=== PATIENT | female | born 1940 | race Caucasian/White ===

== ENCOUNTER 2017-03-30 17:19 | Inpatient (IN) | payer MEDICAID ==
[~2017-03-30] VITALS: Ht 162.6 cm; Wt 85.2 kg
[2017-03-30] VITALS (7 sets, daily range): BP systolic 104–155; BP diastolic 58–75; PULSE 69–80; RESP 16–20; TEMP 99–101.7; O2SAT 93–96
[~2017-03-30 17:19] MED LIST: ALBU1AER INH; ASPI81TA82 PO; BENZ100 PO; CARV6.252 PO; FURO20 PO; LISI10 PO
[2017-03-30] MEDS ORDERED: SODIUM CHLOR 0.9% 1000 ML INJ 1,000 ML IV ONE ×3 (17:27→18:30)
--- NOTE | 2017-03-30 17:44 | RADRPT ---
EXAM DATE/TIME: 03/30/2017 17:29 [facility] COMPARISON: No previous studies available for comparison. INDICATIONS : Stroke alert; weakness. RADIATION DOSE: 61.70 CTDIvol (mGy) MEDICAL HISTORY : Non-responsive. SURGICAL HISTORY : Non-responsive. ENCOUNTER: Initial ACUITY: 1 day PAIN SCALE: 0/10 LOCATION: Cranial TECHNIQUE: Multiple contiguous axial images were obtained of the head. Using automated exposure control and adjustment of the mA and/or kV according to patient size, radiation dose was kept as low as reasonably achievable to obtain optimal diagnostic quality images. DICOM format image data is av ailable electronically for review and comparison. FINDINGS: There is mild prominence to the ventricles. There is no parenchymal hemorrhage, a cute infarction or mass lesion. There are no extra-axial fluid collections. Posterior fossa is unre markable. CONCLUSION: Mild prominence to the ventricles, negative for acute infarct or hemorrhage. Finding s were discussed with Dr. Dupont at 17:35 Murtaza Whyte MD FACR on March 30, 2017 at 17:37 Board Certified Radiologist. This report was verified electronically.
[2017-03-30 17:47] LABS: AUTOMATED NEUTROPHIL # 14.4 TH/MM3 (1.8-7.7); BASOPHIL # 0.6 TH/MM3 (0-0.2); BASOPHIL % 3.4 % (0.0-2.0); EOSINOPHIL # 0.1 TH/MM3 (0-0.4); EOSINOPHIL % 0.3 % (0.0-4.0); HEMATOCRIT 43.9 % (35.0-46.0); HEMO FLAGS DIFF FINAL; LYMPH % 11.7 % (9.0-44.0); LYMPHOCYTE # 2.1 TH/MM3 (1.0-4.8); MEAN CORPUSCULAR HEMOGLOBIN 28.5 PG (27.0-34.0); MEAN CORPUSCULAR HGB CONC 33.1 % (32.0-36.0); MONO % 6.2 % (0.0-8.0); NEUT % 78.4 % (16.0-70.0); PLATELET COUNT 303 TH/MM3 (150-450); RED CELL DISTRIBUTION WIDTH 13.7 % (11.6-17.2); WHITE BLOOD COUNT 18.3 TH/MM3 (4.0-11.0)
[2017-03-30 17:58] LABS: APTT (PATIENT) 27.7 SEC (24.3-30.1); PROTHROMBIN TIME - PATIENT 10.8 SEC (9.8-11.6)
[2017-03-30] MEDS ORDERED: SODIUM CHLORIDE 0.9% FLUSH 5 ML FLUSH IV FLUSH PRN (18:00)
[2017-03-30] MEDS ORDERED: DEXTROSE 50% IN WATER 50 ML VIAL(D50) IV PUSH PRN (18:00)
[2017-03-30] MEDS ORDERED: SODIUM CHLORID 0.9% 500 ML INJ 500 ML IV ONE (18:00)
[2017-03-30] MEDS ORDERED: ASPIRIN 325 MG TAB PO ONE (18:00)
[2017-03-30] MEDS ORDERED: ASPIRIN 300 MG SUPP RECTAL SCH (18:00)
[2017-03-30] MEDS ORDERED: GLUCAGON 1 MG/ML VIAL OTHER PRN (18:00)
--- NOTE | 2017-03-30 18:12 | PD ---
HPI Chief Complaint: Neuro Symptoms/ Deficits Time Seen by Provider: 17:27 Travel History International Travel<30 days: No Contact w/Intl Traveler<30days: No Traveled to known affect area: No History of Present Illness HPI 76-year-old female came to the emergency room with history of weakness, confusion that was sudden onset as per her granddaughter who drove her in her car, since 4 PM. Granddaughter says that she has been sleeping more than usual the whole day today. Usually she is very active and with it. At 3:30 PM when she was sitting on the couch her other granddaughter noticed that she was having trouble standing up. She was talking to her when she noticed that 4 PM she started getting all confused speech and garbled. The granddaughter was concerned for stroke and put her in the car and drove her to the emergency room. She was having trouble getting her in and out of the car. In the car patient could not remember what she did or 8 today. She said she thinks she mostly slept the whole day. Patient does not speak Central African and speaks Polish only. The granddaughter is helping with translation. Upon asking she told me her name but said she was 74 years old. After that she was unable to answer most of the questions. Granddaughter said that she has had a stroke in the past many years ago and 2 stents placed in the past. She is not on any blood thinners. [facility] Past Medical History Narrative Medical List of her past medical, surgical, social and family history is reviewed from the nursing note. Hx Anticoagulant Therapy: Yes Arthritis: Yes Asthma: Yes Blood Disorders: No Anxiety: No Depression: No Heart Rhythm Problems: No Cancer: No Cardiovascular Problems: Yes High Cholesterol: No Chemotherapy: No Chest Pain: Yes Congestive Heart Failure: No COPD: No Cerebrovascular Accident: No Coronary Artery Disease: Yes (stents placed 2011) Diabetes: No Diminished Hearing: No Endocrine: No Gastrointestinal Disorders: No GERD: Yes Glaucoma: No Genitourinary: No Headaches: No Hepatitis: No Hiatal Hernia: No Hypertension: Yes Immune Disorder: No Kidney Stones: No Musculoskeletal: Yes Neurologic: No Psychiatric: No Reproductive: No Respiratory: Yes Migraines: No Myocardial Infarction: No Radiation Therapy: No Renal Failure: No Seizures: No Sickle Cell Disease: No Sleep Apnea: No Thyroid Disease: Yes Ulcer: No Menopausal: Yes Past Surgical History Abdominal Surgery: No AICD: No Arteriovenous Shunt: No Body Medical Devices: stents x 2. Cardiac Surgery: No Section: Yes Ear Surgery: No Endocrine Surgery: No Eye Surgery: No Genitourinary Surgery: No Gynecologic Surgery: Yes (2 c-sections) Insulin Pump: No Joint Replacement: No Neurologic Surgery: No Oral Surgery: No Pacemaker: No Thoracic Surgery: No Tonsillectomy: Yes Other Surgery: Yes (varicose veins removed) Social History Alcohol Use: No Tobacco Use: No Substance Use: No Allergies-Medications (Allergen,Severity, Reaction): Coded Allergies: No Known Allergies (Verified , 04/04/16) Comments No known drug allergies. Reported Meds & Prescriptions Reported Meds & Active Scripts Active Reported Nitrostat SL (Nitroglycerin) 0.4 Mg Subl 0.4 Mg SL DIRECTED PRN 1 tablet under the tongue as needed for chest pain. Repeat every 5 minutes for a total of 3 DOSES or call 911 if NO relief. Atorvastatin (Atorvastatin Calcium) 20 Mg Tab 20 Mg PO HS Carvedilol 12.5 Mg Tab 12.5 Mg PO DAILY Ibuprofen 400 Mg Tab 400 Mg PO Q6H PRN Lisinopril 20 Mg Tab 20 Mg PO DAILY Tramadol (Tramadol HCl) 50 Mg Tab 50 Mg PO Q4H PRN Aspirin 81 Mg Chew 81 Mg CHEW DAILY Lasix (Furosemide) 20 Mg Tab 20 Mg PO DAILY Potassium Chloride ER (Potassium Chloride) 10 Meq Tab 10 Meq PO DAILY Gabapentin 100 Mg Cap 100 Mg PO TID Narrative Medication List of her home medications reviewed from the nursing note. Review of Systems Except as stated in HPI: all other systems reviewed are Neg Physical Exam Narrative GENERAL: Awake, obese, moderate distress, language barrier SKIN: Focused skin assessment warm/dry. HEAD: Atraumatic. Normocephalic. EYES: Pupils equal and round. No scleral icterus. No injection or drainage. ENT: No nasal bleeding or discharge. Mucous membranes pink and moist. NECK: Trachea midline. No JVD. CARDIOVASCULAR: Regular rate and rhythm. No murmur appreciated. RESPIRATORY: No accessory muscle use. Clear to auscultation. Breath sounds equal bilaterally. GASTROINTESTINAL: Abdomen soft, non-tender, nondistended. Hepatic and splenic margins not palpable. MUSCULOSKELETAL: No obvious deformities. No clubbing. No cyanosis. No edema. NEUROLOGICAL: Awake and confused. No obvious cranial nerve deficits. Patient is moving bilateral upper extremities. Difficulty moving either of the lower extremities. Upon helping she can keep her left lower extremity up for 3-4 seconds at the right lower extremity seems to have strand of 0 out of 5. Difficult to know if the speech is normal or dysarthria due to language. PSYCHIATRIC: Appropriate mood and affect; insight and judgment normal. Data Data Last Documented VS Orders Orders Cath For Specimen (03/30/17:) Neuro Checks Q2HX12,Q4H (03/30/17 17:27) Nursing Bedside Swallow Assess .ONCE (03/30/17 17:) Activity Bed Rest (03/30/17 17:) Diet Npo (03/30/17 Dinner) Prothrombin Time / Inr (Pt) (03/30/17:) Act Partial Throm Time (Ptt) (03/30/17:) Complete Blood Count With Diff (03/30/17:) Basic Metabolic Panel (Bmp) (03/30/17 17:) Fibrinogen (03/30/17 17:) Creatine Kinase (Cpk) (03/30/17 17:27) Troponin I (03/30/17 17:27) Drug Screen, Random Urine (03/30/17:) Type And Screen (03/30/17:) Ct Brain W/O Iv Contrast(Rout) (03/30/17 ) Electrocardiogram (03/30/17 ) Beta Hcg (Quant/Titer) (03/30/17 17:27) Consult Neurology (03/30/17 17:27) Sodium Chlor 0.9% 1000 Ml Inj (Ns 1000 M (03/30/17 17:27) Blood Glucose (03/30/17 17:27) Ecg Monitoring (03/30/17 17:27) Iv Access Insert/Monitor (03/30/17 17:27) NPO (03/30/17 17:) Oximetry (03/30/17 17:27) Oxygen Administration (03/30/17 17:27) Resp Oxygen Paco C Titrat 1-4 L (03/30/17 17:27) Sodium Chlorid 0.9% 500 Ml Inj (Ns 500 M (03/30/17 18:00) Aspirin (Aspirin) (03/30/17 18:00) Nih Stroke Scale - Nihss .On admission and discharge (03/30/17 18:00) Case Management Consult (03/30/17 ) Activity Bed Rest (03/30/17 18:00) Nursing Bedside Swallow Assess .ONCE (03/30/17 18:00) Scd Bilateral/Knee High JUDITH.QSHIFT (03/30/17 18:00) Hemoglobin (Hgb) A1c (03/30/17 18:00) Lipid Profile (03/31/17 06:00) ^ Hold Medication (03/30/17 18:00) Sodium Chloride 0.9% Flush (Ns Flush) (03/30/17 21:00) Sodium Chloride 0.9% Flush (Ns Flush) (03/30/17 18:00) Aspirin Supp (Aspirin Supp) (03/30/17 18:00) Bedside Glucose JUDITH.CSUGAR (03/30/17 18:00) ^ Discontinue Insulin Orders (03/30/17 18:00) Insulin Aspart Supplemtl Scale (Novolog (03/30/17 21:00) Dextrose 50% In Chaya (Vial) Inj (D50w (Vi (03/30/17 18:00) Glucagon Inj (Glucagon Inj) (03/30/17 18:00) Consult Rehab Medicine (03/30/17 18:00) Staff Sonographer / Telemetry JUDITH.Q8H (03/30/17 18:00) Consult Stroke Navigator (03/30/17 ) Enoxaparin Inj (Lovenox Inj) (03/30/17 18:00) Urinalysis - C+S If Indicated (03/30/17 18:13) Strain Urine PRN (03/30/17 18:13) Blood Culture (03/30/17 18:13) Lactic Acid (03/30/17 18:13) Sodium Chlor 0.9% 1000 Ml Inj (Ns 1000 M (03/30/17 18:30) Sodium Chlor 0.9% 1000 Ml Inj (Ns 1000 M (03/30/17 18:30) Piperacil-Tazo 4.5 Gm Premix (Zosyn 4.5 (03/30/17 18:30) Vancomycin Inj (Vancomycin Inj) (03/30/17 18:30) Acetaminophen (Tylenol) (03/30/17 18:30) Admit Order (Ed Use Only) (03/30/17 18:33) Us Carotid Arteries Comp Bilat (03/31/17 ) Mra Brain W/O Contrast (Cow) (03/31/17 ) Mri Brain W/O Contrast (03/31/17 ) Labs Laboratory Tests Test 03/30/17 17:35 03/30/17 18:00 White Blood Count 18.3 TH/MM3 Red Blood Count 5.10 MIL/MM3 Hemoglobin 14.6 GM/DL Hematocrit 43.9 % Mean Corpuscular Volume 86.0 FL Mean Corpuscular Hemoglobin 28.5 PG Mean Corpuscular Hemoglobin Concent 33.1 % Red Cell Distribution Width 13.7 % Platelet Count 303 TH/MM3 Mean Platelet Volume 7.9 FL Neutrophils (%) (Auto) 78.4 % Lymphocytes (%) (Auto) 11.7 % Monocytes (%) (Auto) 6.2 % Eosinophils (%) (Auto) 0.3 % Basophils (%) (Auto) 3.4 % Neutrophils # (Auto) 14.4 TH/MM3 Lymphocytes # (Auto) 2.1 TH/MM3 Monocytes # (Auto) 1.1 TH/MM3 Eosinophils # (Auto) 0.1 TH/MM3 Basophils # (Auto) 0.6 TH/MM3 CBC Comment DIFF FINAL Differential Comment Prothrombin Time 10.8 SEC Prothromb Time International Ratio 1.0 RATIO Activated Partial Thromboplast Time 27.7 SEC Fibrinogen 438 mg/dL Hemoglobin A1c 5.7 % Urine Collection Type CATH Urine Color YELLOW Urine Turbidity CLEAR Urine pH 6.0 Urine Specific [place] 1.021 Urine Protein 30 mg/dL Urine Glucose (UA) NEG mg/dL Urine Ketones NEG mg/dL Urine Occult Blood LARGE Urine Nitrite POS Urine Bilirubin NEG Urine Leukocyte Esterase NEG Urine RBC 10-14 /hpf Urine WBC 15-19 /hpf Urine WBC Clumps FEW Urine Bacteria MANY /hpf Microscopic Urinalysis Comment CATH-CULTURE IND Urine Collection Time 18:00 Urine Opiates Screen NEG Urine Barbiturates Screen NEG Urine Amphetamines Screen NEG Urine Benzodiazepines Screen NEG Urine Cocaine Screen NEG Urine Cannabinoids Screen NEG MDM Medical Decision Making Medical Screen Exam Complete: Yes Emergency Medical Condition: Yes Medical Record Reviewed: Yes Interpretation(s) Twelve-lead EKG was reviewed by me. Normal sinus rhythm, normal axis, nonspecific ST-T wave changes. Heart rate of 82 bpm. Differential Diagnosis CVA, intracranial bleed Narrative Course 6:22 PM initially given her presentation a stroke alert was called. Discussed the case with Dr. Gilliam and described to her the picture. She told me she was in the building and would come down immediately which she did. Meanwhile CAT scan was done and I got called from radiologist saying that it was negative for any hemorrhage. Bedside blood sugar was 131. I was unable to do an NIH stroke score given the language barrier and seems like patient was having difficulty following commands to some extent. However once Dr. Gilliam arrived and she examined the patient she said her symptoms were looking much better. She decided not to give TPA to this patient given a significant improvement. Please refer to her dictation as well. Blood test results came back and patient has significant leukocytosis. I just noticed that nurse had entered patient's temperature as 100.6 at which point I asked her to do a rectal temperature and I was told it was 101.7. Based on this at this point patient is rather sepsis. I've asked the nurse to do a straight catheter UA. I have ordered 2 L of IV fluid bolus. She was ordered 500 cc bolus initially. I have also given her IV Zosyn and vancomycin as per sepsis protocol. Awaiting for the chemistry. Patient will require admission. Critical Care Narrative Aggregate critical care time was 30 minutes. Time to perform other separately billable procedures was not included in the critical care time. My time did not include minutes spent treating any other patients simultaneously or on activities that did not directly contribute to the patient's treatment. The services I provided to this patient were to treat and/or prevent clinically significant deterioration that could result in: Altered mental status, sepsis I provided critical care services requiring my management, as noted below: Chart data review, documentation time, medication orders and management, vital sign assessments/reviewing monitor data, ordering and reviewing lab tests, ordering and interpreting/reviewing x-rays and diagnostic studies, care of the patient and discussion of the patient with the admitting physicians. Procedures EKG Prior to Arrival: No Physician Communication Physician Communication dr. Gilliam Diagnosis Primary Impression: Altered mental status Qualified Codes: R41.0 - Disorientation, unspecified Additional Impression: Sepsis Qualified Codes: A41.9 - Sepsis, unspecified organism Admitting Information Admitting Physician Requests: Admit Scripts Hydrocodone-Acetaminophen ([place]) 5-325 mg Tab 1 TAB PO Q8HR Y for PAIN, #15 TAB 0 Refills Prov: Ya Aguayo MD 04/01/17 Lactobacillus Acidophilus (Lactinex) 1 Chew 1 TAB CHEW DAILY for Nutritional Supplement, #30 TAB 0 Refills Prov: Ya Aguayo MD 04/01/17 Ciprofloxacin (Cipro) 500 Mg Tab 500 MG PO BID for Infection, #14 TAB 0 Refills Prov: Ya Aguayo MD 04/01/17 Addy Dupont MD Mar 30, 2017 18:12
[2017-03-30] MEDS ORDERED: LISI-515 PO (18:26)
[2017-03-30] MEDS ORDERED: IBUP400T20 PO (18:26)
[2017-03-30] MEDS ORDERED: ATOR20TA15 PO (18:26)
[2017-03-30] MEDS ORDERED: NITR0.4S SL (18:26)
[2017-03-30] MEDS ORDERED: TRAM50TA PO (18:26)
[2017-03-30] MEDS ORDERED: GABA100C4 PO (18:26)
[2017-03-30] MEDS ORDERED: FURO1TAB62 PO (18:26)
[2017-03-30] MEDS ORDERED: POTA10TA2 PO (18:26)
[2017-03-30] MEDS ORDERED: CARV12.52 PO (18:26)
[2017-03-30] MEDS ORDERED: ASPI81CH CHEW (18:26)
[2017-03-30] MEDS ORDERED: VANCOMYCIN INJ 1,000 MG in SODIUM CHLOR 0.9% 250 ML INJ 250 ML IV ONE (18:30)
[2017-03-30] MEDS ORDERED: ACETAMINOPHEN 325 MG TAB PO ONE (18:30)
[2017-03-30] MEDS ORDERED: PIPERACIL-TAZO 4.5 GM PREMIX 100 ML IV ONE (18:30)
[2017-03-30] MEDS ORDERED: Vancomycin Consult Pharmacy 1 EA OTHER SCH (18:45)
[2017-03-30] MEDS ORDERED: IBUPROFEN 400 MG TAB PO PRN (18:45)
[2017-03-30] MEDS ORDERED: VANCOMYCIN INJ 1,000 MG in SODIUM CHLOR 0.9% 250 ML INJ 250 ML IV SCH (18:45)
[2017-03-30] MEDS ORDERED: BISACODYL 10 MG SUPP RECTAL PRN (18:45)
[2017-03-30] MEDS ORDERED: NALOXONE HCL 0.4 MG/ML AMP IV PUSH PRN (18:45)
[2017-03-30] MEDS ORDERED: SODIUM CHLORIDE 0.9% FLUSH 10 ML FLUSH IV FLUSH PRN (18:45)
[2017-03-30 18:54] LABS: BLOOD, URINE LARGE (NEG); GLUCOSE,URINE NEG (NEG); KETONE, URINE NEG (NEG); NITRITE,URINE POS (NEG)
[2017-03-30 18:56] LABS: METHOD OF COLLECTION CATH; URINE COLOR YELLOW (YELLW/STRAW)
[2017-03-30 18:59] LABS: WBC, URINE 15-19 /hpf (0-5)
[2017-03-30] MEDS ORDERED: SENNOSIDES 8.6 MG TAB PO PRN (19:00)
[2017-03-30] MEDS ORDERED: LACTULOSE SYRUP 20 GM/30 ML CUP PO PRN (19:00)
[2017-03-30] MEDS ORDERED: MAGNESIUM HYDROXIDE SUSP 30 ML CUP PO PRN (19:00)
[2017-03-30 19:01] LABS: BACTERIA, URINE MANY /hpf; COMMENT (UR) CATH-CULTURE IND; CULTURE IF INDICATED CATH CULTURE IND
[2017-03-30] MEDS: ENOXAPARIN SODIUM 40 MG/0.4 ML SYRINGE SQ SCH (19:31)
[2017-03-30 19:53] LABS: BLOOD UREA NITROGEN 18 MG/DL (7-18)
[2017-03-30 19:54] LABS: ANION GAP 7 MEQ/L (5-15); BETA HCG QUANT 2 MIU/ML (0-5); BICARBONATE 28.8 MEQ/L (21.0-32.0); CHLORIDE 103 MEQ/L (98-107); CREATINE KINASE 31 U/L (26-192); GLOMERULAR FILTRATION RATE 69 ML/MIN (>89); POTASSIUM 3.2 MEQ/L (3.5-5.1); SODIUM (NA) 139 MEQ/L (136-145)
[2017-03-30] MEDS: PIPERACIL-TAZO 4.5 GM PREMIX 100 ML IV SCH (20:00)
[2017-03-30] MEDS ORDERED: traMADol HCL 50 MG TAB PO PRN (20:00)
[2017-03-30 20:35] LABS: HEMOGLOBIN A1a 1.1 %; HEMOGLOBIN Ao 84.4 %; HEMOGLOBIN LA1C 2.2 %; HEMOGLOBIN P3 4.2 %
[2017-03-30] MEDS: SODIUM CHLORIDE 0.9% FLUSH 10 ML FLUSH IV FLUSH SCH (21:00)
[2017-03-30] MEDS ORDERED: VANCOMYCIN INJ 1,250 MG in SODIUM CHLOR 0.9% 250 ML INJ 250 ML IV SCH (21:00)
[2017-03-30] MEDS ORDERED: SODIUM CHLORIDE 0.9% FLUSH 5 ML FLUSH IV FLUSH SCH (21:00)
[2017-03-30] MEDS: DOCUSATE SODIUM 50 MG/SENNA 8.6 MG TAB PO SCH (21:00)
[2017-03-30] MEDS: INSULIN ASPART SUPPLEMENTAL SCALE SQ SCH (21:11)
--- NOTE | 2017-03-30 21:26 | MB ---
cc: DIEGO RUSSELL M.D. DATE OF CONSULTATION: 03/30/2017 REASON FOR CONSULTATION: Stroke alert DATE OF : 1940, 76 HISTORY OF PRESENT ILLNESS: This is a pleasant 76 year-old woman who started experiencing some facial droop and slurred speech 3:30 to 4 o'clock in the afternoon. She was unable to walk. The daughter actually was able to get her into a wheelchair from home and drive her to the hospital. Here in the hospital there is a language barrier. She does not speak any Persian only [place] with the daughter. She was still having some possible weakness over her left leg and confusion which is significantly improved. She has undergone CT of the head per protocol and labs. I am seeing the patient at CT and talking to the family member to the granddaughter. PAST MEDICAL HISTORY: Significant for: 1. Heart disease. 2. Two stents. 3. DVT. 4. Hypertension. MEDICATIONS: She is only on baby aspirin for stroke prevention. Other medicines please refer to EMR. SOCIAL HISTORY: She lives with her family here in [place]. There is no tobacco or alcohol consumption. She used to work in the [employer] business. She has a lot of arthritic changes in her feet. PHYSICAL EXAMINATION: She is a 76-year-old woman lying in bed in no distress. NECK: Supple. No bruits. HEART: Regular. She is awake and alert. She knows she lives in [place]. She told me her granddaughter's name, the relationship to her. She knows her name, her date of , however, she said she was 74 instead of 76. She initially thought it was February but then after Thi assessed her she stated it was April, but she knew that it was 2016. She does not know the date or the day of the week and that is not unusual for her, per her family members description. NEUROLOGIC: Speech otherwise is fluent in her [place] tongue which is [place]. Pupils reactive. Her face is symmetrical. Tongue is midline. She follows commands. Motor cruz, she has no drift. She has an old fracture of the right elbow. There is a large scar. She has some tenderness there but there is no significant weakness noted proximally nor distally. She can lift her leg antigravity in her left with maintaining resistance. It is 4/5. Her left toe is downgoing. Right leg, she is lifting to the right a little bit in the bed but she can lift antigravity and maintain resistance and right toe is downgoing as well. Cerebellar: [id number], no past-pointing. Sensory is normal to pain and temperature, gait is not assessed at this time. LABORATORY DATA White count is 18.3 neutrophils 78.4, hemoglobin 14.6, platelets 303,000. Coag panel is pending. Chemistries are pending as well. Imaging study report cannot be obtained but from my review I do not see any acute infarct. There may be some calcification in the MCA bilaterally but no significant dense MCA sign seen, just some ventriculomegaly, atrophy. IMPRESSION The patient is a 76-year-old woman with stroke alert. At this point in time she did not meet criteria for TPA because of rapidly improving symptoms. She seems near baseline at this time. Recommend, however, a full stroke workup, given her heart history. Will get an MRI of the brain, MRA [place], carotid ultrasound, 2-D echocardiogram, also a fasting lipid panel. Permissible hypertension. Will start her on full dose aspirin. SCDs and Lovenox for DVT prophylaxis. PT/OT, speech therapy evaluation. Depending on findings further recommendations to be made accordingly. MD ROMARIO Motta/MARCUS /5:54 PM /8:36 PM
[2017-03-30] MEDS: ATORVASTATIN 20 MG TAB PO SCH (22:26)
[2017-03-31] VITALS (8 sets, daily range): BP systolic 107–123; BP diastolic 67–70; PULSE 63–70; RESP 16–20; TEMP 97.5–98.6; O2SAT 93–95
[2017-03-31] MEDS ORDERED: VANCOMYCIN INJ 750 MG in SODIUM CHLOR 0.9% 250 ML INJ 250 ML IV ONE ×2
[2017-03-31] MEDS: PIPERACIL-TAZO 4.5 GM PREMIX 100 ML IV SCH ×4 (02:11→21:30)
[2017-03-31 06:39] LABS: AUTOMATED NEUTROPHIL # 9.2 TH/MM3 (1.8-7.7); BASOPHIL % 0.4 % (0.0-2.0); EOSINOPHIL # 0.1 TH/MM3 (0-0.4); EOSINOPHIL % 0.8 % (0.0-4.0); HEMATOCRIT 36.6 % (35.0-46.0); LYMPH % 16.2 % (9.0-44.0); LYMPHOCYTE # 1.9 TH/MM3 (1.0-4.8); MEAN CELL VOLUME 85.6 FL (80.0-100.0); MEAN CORPUSCULAR HEMOGLOBIN 28.4 PG (27.0-34.0); MEAN CORPUSCULAR HGB CONC 33.2 % (32.0-36.0); NEUT % 75.6 % (16.0-70.0); PLATELET COUNT 238 TH/MM3 (150-450); RED BLOOD COUNT 4.27 MIL/MM3 (4.00-5.30); RED CELL DISTRIBUTION WIDTH 13.4 % (11.6-17.2)
[2017-03-31 06:59] LABS: BICARBONATE 27.8 MEQ/L (21.0-32.0)
[2017-03-31 07:02] LABS: POTASSIUM 2.9 MEQ/L (3.5-5.1)
[2017-03-31 07:05] LABS: HEMO FLAGS DIFF FINAL
--- NOTE | 2017-03-31 07:50 | EKG ---
Date Performed: 03/30/2017 Time Performed: 17:40:35 PTAGE: 76 years EKG: Sinus rhythm NORMAL ECG Since PREVIOUS TRACING , no significant change noted PREVIOUS TRACIN04/12/2016 11.30 DOCTOR: Ana Bryant Interpretating Date/Time 03/31/2017 07:48:35
[2017-03-31] MEDS ORDERED: POTASSIUM CHLORIDE 10 MEQ CONTROLLED RELEASE TAB PO ONE (08:00)
[2017-03-31] MEDS: INSULIN ASPART SUPPLEMENTAL SCALE SQ SCH ×4 (08:05→21:00)
[2017-03-31] MEDS: SODIUM CHLORIDE 0.9% FLUSH 10 ML FLUSH IV FLUSH SCH ×2 (09:00→21:30)
--- NOTE | 2017-03-31 09:14 | RADRPT ---
EXAM DATE/TIME: 03/31/2017 08:17 [facility] COMPARISON: CHEST SINGLE AP, April 11, 2016, 14:10. INDICATIONS : Dyspnea. MEDICAL HISTORY : Arthritis. Gastroesophageal reflux disease. Osteoporosis. Hypertension. Supraventricular tachycar pam.Thyroid disease. Asthma. Wheezing. Dyspnea. SURGICAL HISTORY : section. Total knee replacement, left. Cardiac cath w/ stent placement. Right arm surgery. Vericose vein removal. ENCOUNTER: Subsequent ACUITY: 2 days PAIN SCORE: 0/10 LOCATION: chest FINDINGS: Single AP view of the chest. The lungs are clear. Cardiomediastinal silhouette within normal limits. No evidence of pleural effusion or pneumothorax. CONCLUSION: No acute cardiopulmonary disease identified. Jovanni Sprague MD on March 31, 2017 at 9:11 Board Certified Radiologist. This report was verified electronically.
[2017-03-31] MEDS ORDERED: Vancomycin Consult Pharmacy 1 EA OTHER SCH (09:15)
[2017-03-31] MEDS: GABAPENTIN 100 MG CAP PO SCH ×3 (09:46→17:14)
[2017-03-31] MEDS: ASPIRIN 81 MG CHEW TAB CHEW SCH (09:46)
[2017-03-31] MEDS: CARVEDILOL 12.5 MG TAB PO SCH (09:46)
[2017-03-31] MEDS: DOCUSATE SODIUM 50 MG/SENNA 8.6 MG TAB PO SCH ×2 (09:46→21:00)
[2017-03-31] MEDS: LISINOPRIL 20 MG TAB PO SCH (09:46)
[2017-03-31 09:57] LABS: HDL CHOLESTEROL 41.4 MG/DL (40.0-60.0)
--- NOTE | 2017-03-31 10:58 | RADRPT ---
EXAM DATE/TIME: 03/31/2017 08:46 [facility] COMPARISON: No previous studies available for comparison. INDICATIONS : Cerebrovascular accident. MEDICAL HISTORY : Hypertension. Gastroesophageal reflux disease. Thyroid disease. Coronary artery disease. Asthma. Arthritis. SURGICAL HISTORY : Tonsillectomy. section. Cardiac stent placement. Right arm repair. Left knee replacement . Vericose vein removal. ENCOUNTER: Initial ACUITY: 2 days PAIN SCORE: 2/10 LOCATION: Bilateral neck PEAK SYSTOLIC VELOCITIES (cm/sec): ICA/CCA RATIO: Right: 1.0 Left: 0.9 ICA: Right: 81 Left: 87 CCA: Right: 81 Left: 94 ECA: Right: 106 Left: 78 VERTEBRAL: Right: 45 antegrade Left: 27 antegrade Elevated flow velocities and ICA/CCA ratios have been found to correlate with increased degrees of vessel stenosis, calculated as percentage of diameter relative to a normal segment of distal ICA/CCA FINDINGS: RIGHT CAROTID: No significant stenosis is visualized. The waveforms are within normal limits. LEFT CAROTID: No significant stenosis is visualized. The waveforms are within normal limits. VERTEBRAL ARTERIES: Antegrade flow is seen in both vertebral arteries. MISCELLANEOUS: None. CONCLUSION: No evidence of hemodynamically significant carotid stenosis. Jovanni Sprague MD on March 31, 2017 at 10:56 Board Certified Radiologist. This report was verified electronically.
--- NOTE | 2017-03-31 13:52 | RADRPT ---
EXAM DATE/TIME: 03/31/2017 10:59 [facility] COMPARISON: No previous studies available for comparison. INDICATIONS : CVA. MEDICAL HISTORY : Hypertension. SURGICAL HISTORY : Tonsillectomy. Rigth arm and left knee. ENCOUNTER: Initial ACUITY: 1 day PAIN SCORE: 0/10 LOCATION: Head. Please note a normal MRA of the brain does not entirely exclude the possibility of a small aneurysm, nor the possibility of distal intracranial vessel disease. TECHNIQUE: 3D time of flight MRA was performed. Source images, multiplanar STS MIP, and 3D volume MIP reconstru ctions were reviewed. FINDINGS: There is excellent visualization of the major intracranial arteries out to the second-order branch ve ssels. There is no evidence for aneurysm, vessel truncation or stenosis, and no evidence for vascula r malformation. CONCLUSION: Brain MRA within normal limits. Jovanni Sprague MD on March 31, 2017 at 13:49 Board Certified Radiologist. This report was verified electronically.
--- NOTE | 2017-03-31 13:55 | RADRPT ---
EXAM DATE/TIME: 03/31/2017 10:59 [facility] COMPARISON: No previous studies available for comparison. INDICATIONS : CVA. MEDICAL HISTORY : Hypertension. SURGICAL HISTORY : Tonsillectomy. Right arm and left knee. ENCOUNTER: Initial ACUITY: 1 day PAIN SCORE: 0/10 LOCATION: Head. TECHNIQUE: Multiplanar, multisequence MRI of the brain was performed without contrast. FINDINGS: CEREBRUM: Diffuse prominence of the ventricles, sulci, and cisterns indicating diffuse atrophy. No evidence of midline shift, mass lesion, hemorrhage or acute infarction. No extraaxial fluid collections are seen . The pituitary gland and suprasellar cistern are normal in configuration. WHITE MATTER: No significant signal abnormalities are seen in the white matter. POSTERIOR FOSSA: The cerebellum and brainstem are intact. The 4th ventricle is midline. The cerebellopontine angle is unremarkable. The cerebellar tonsils are normal in position. DIFFUSION IMAGING: No focal areas of restricted diffusion are seen. No evidence of acute infarction. EXTRACRANIAL: The visualized portions of the orbits and paranasal sinuses are unremarkable. CONCLUSION: Diffuse atrophy. Ventricles are slightly more prominent than the sulci indicating possible hydrocepha eliane. No other acute intracranial findings. Jovanni Sprague MD on March 31, 2017 at 13:51 Board Certified Radiologist. This report was verified electronically.
--- NOTE | 2017-03-31 14:48 | HHI.HP ---
[facility] Unknown Admission Diagnosis sepsis, altered mental status Diagnoses: Chief Complaint: altered mental status Travel History International Travel<30 Days: No Contact w/Intl Traveler <30 Da: No Traveled to Known Affected Are: No History of Present Illness The patient is a very pleasant 76-year-old female tamazight speaking only with past medical history of coronary artery disease status post stents 2011, hypertension , hyperlipidemia, GERD, presented to the emergency room for further evaluation of altered mental status. Daughter was drinking the patient yesterday in the emergency room he goes she was noted altered mental status confused and not responding to her questions, slurred speech. The daughter however medications to her in the wheelchair and bring her to the emergency room. Patient says she has back pain for the past 2 months and she was mostly bedridden. She had physical therapy and improved some. She says she has more pain in her back and she has radiation to her left knee and left buttocks. Has paresthesias as well on the left side. Initially stroke alert was called in the emergency room. CT head negative. Neurology was consulted as well the patient was seen by Dr. Gilliam, Patient had full workup for CVA. The patient is noted with fever, leukocytosis in the emergency room, patient with UTI. She was started on IV antibiotics, IVF. Patient is improving. Patient denies any nausea, vomiting. She says she has diarrhea for the past 1 week. Last bowel movements was 2 days ago. No fever or chills at this time. She denies any urinary complaints except urinary incontinence and increased frequency. No pain with urination. Review of Systems ROS Limitations: Clinical Condition, Language Barrier Except as stated in HPI: all other systems reviewed are Neg Past Family Social History Past Medical History CVA with 2 stents, hyperlipidemia, hypertension, GERD Past Surgical History Right arm surgery, 2 , varicose veins removed Reported Medications Reported Meds & Active Scripts Active Reported Nitrostat SL (Nitroglycerin) 0.4 Mg Subl 0.4 Mg SL DIRECTED PRN 1 tablet under the tongue as needed for chest pain. Repeat every 5 minutes for a total of 3 DOSES or call 911 if NO relief. Atorvastatin (Atorvastatin Calcium) 20 Mg Tab 20 Mg PO HS Carvedilol 12.5 Mg Tab 12.5 Mg PO DAILY Ibuprofen 400 Mg Tab 400 Mg PO Q6H PRN Lisinopril 20 Mg Tab 20 Mg PO DAILY Tramadol (Tramadol HCl) 50 Mg Tab 50 Mg PO Q4H PRN Aspirin 81 Mg Chew 81 Mg CHEW DAILY Lasix (Furosemide) 20 Mg Tab 20 Mg PO DAILY Potassium Chloride ER (Potassium Chloride) 10 Meq Tab 10 Meq PO DAILY Gabapentin 100 Mg Cap 100 Mg PO TID Allergies: Coded Allergies: No Known Allergies (Verified , 04/04/16) Family History Father with cardiac problems Social History Denies alcohol use, illicit drug use or tobacco use Physical Exam Vital Signs Vital Signs Date Time Temp Pulse Resp B/P (MAP) Pulse Ox O2 Delivery O2 Flow Rate FiO2 03/31/17 12:00 98.6 64 18 107/67 (80) 93 03/31/17 08:12 65 03/31/17 08:00 98.3 63 18 119/70 (86) 94 03/31/17 07:57 94 21 03/31/17 05:12 21 03/31/17 01:22 98.5 66 16 123/68 (86) 95 03/31/17 00:30 03/30/17 23:59 99.0 69 16 115/58 (77) 94 Room Air 03/30/17 22:16 99.4 69 16 112/61 (78) 96 Room Air 03/30/17 20:10 99.6 75 16 104/58 (73) 96 Room Air 03/30/17 18:32 6 Nasal Cannula 2.00 03/30/17 18:31 96 03/30/17 18:19 101.7 03/30/17 17:28 93 21 03/30/17 17:28 93 03/30/17 17:20 100.6 80 20 155/75 (101) 96 Physical Exam GENERAL: This is a well-nourished, well-developed patient, in no apparent distress. SKIN: No rashes, ecchymoses or lesions. Cool and dry. HEAD: Atraumatic. Normocephalic. No temporal or scalp tenderness. EYES: Pupils equal round and reactive. Extraocular motions intact. No scleral icterus. No injection or drainage. ENT: Nose without bleeding, purulent drainage or septal hematoma. Throat without erythema, tonsillar hypertrophy or exudate. Uvula midline. Airway patent. NECK: Trachea midline. No JVD or lymphadenopathy. Supple, nontender, no meningeal signs. CARDIOVASCULAR: Regular rate and rhythm without murmurs, gallops, or rubs. RESPIRATORY: Clear to auscultation. Breath sounds equal bilaterally. No wheezes , rales, or rhonchi. GASTROINTESTINAL: Abdomen soft, non-tender, nondistended. No hepato-splenomegaly , or palpable masses. No guarding. MUSCULOSKELETAL: Extremities without clubbing, cyanosis, or edema. No joint tenderness, effusion, or edema noted. No calf tenderness. Negative Homans sign bilaterally. NEUROLOGICAL: Awake and alert. Cranial nerves II through XII intact. Motor grossly within normal limits. Has some weakness on the left leg with paresthesias. Normal speech, back at baseline. Laboratory Laboratory Tests Test 03/30/17 17:35 03/30/17 18:00 03/30/17 18:59 03/30/17 19:16 White Blood Count 18.3 Red Blood Count 5.10 Hemoglobin 14.6 Hematocrit 43.9 Mean Corpuscular Volume 86.0 Mean Corpuscular Hemoglobin 28.5 Mean Corpuscular Hemoglobin Concent 33.1 Red Cell Distribution Width 13.7 Platelet Count 303 Mean Platelet Volume 7.9 Neutrophils (%) (Auto) 78.4 Lymphocytes (%) (Auto) 11.7 Monocytes (%) (Auto) 6.2 Eosinophils (%) (Auto) 0.3 Basophils (%) (Auto) 3.4 Neutrophils # (Auto) 14.4 Lymphocytes # (Auto) 2.1 Monocytes # (Auto) 1.1 Eosinophils # (Auto) 0.1 Basophils # (Auto) 0.6 CBC Comment DIFF FINAL Differential Comment Prothrombin Time 10.8 Prothromb Time International Ratio 1.0 Activated Partial Thromboplast Time 27.7 Fibrinogen 438 Hemoglobin A1c 5.7 Urine Collection Type CATH Urine Color YELLOW Urine Turbidity CLEAR Urine pH 6.0 Urine Specific [place] 1.021 Urine Protein 30 Urine Glucose (UA) NEG Urine Ketones NEG Urine Occult Blood LARGE Urine Nitrite POS Urine Bilirubin NEG Urine Leukocyte Esterase NEG Urine RBC 10-14 Urine WBC 15-19 Urine WBC [place] FEW Urine Bacteria MANY Microscopic Urinalysis Comment CATH-CULTURE IND Urine Collection Time 18:00 Urine Opiates Screen NEG Urine Barbiturates Screen NEG Urine Amphetamines Screen NEG Urine Benzodiazepines Screen NEG Urine Cocaine Screen NEG Urine Cannabinoids Screen NEG Lactic Acid Level 1.0 Blood Urea Nitrogen 18 Creatinine 0.81 Random Glucose 113 Calcium Level 8.9 Sodium Level 139 Potassium Level 3.2 Chloride Level 103 Carbon Dioxide Level 28.8 Anion Gap 7 Estimat Glomerular Filtration Rate 69 Total Creatine Kinase 31 Troponin I LESS THAN 0.02 Human Chorionic Gonadotropin, Quant 2 Test 03/31/17 05:22 White Blood Count 12.0 Red Blood Count 4.27 Hemoglobin 12.1 Hematocrit 36.6 Mean Corpuscular Volume 85.6 Mean Corpuscular Hemoglobin 28.4 Mean Corpuscular Hemoglobin Concent 33.2 Red Cell Distribution Width 13.4 Platelet Count 238 Mean Platelet Volume 7.8 Neutrophils (%) (Auto) 75.6 Lymphocytes (%) (Auto) 16.2 Monocytes (%) (Auto) 7.0 Eosinophils (%) (Auto) 0.8 Basophils (%) (Auto) 0.4 Neutrophils # (Auto) 9.2 Lymphocytes # (Auto) 1.9 Monocytes # (Auto) 0.8 Eosinophils # (Auto) 0.1 Basophils # (Auto) 0.0 CBC Comment DIFF FINAL Differential Comment Blood Urea Nitrogen 15 Creatinine 0.80 Random Glucose 95 Calcium Level 8.5 Sodium Level 142 Potassium Level 2.9 Chloride Level 106 Carbon Dioxide Level 27.8 Anion Gap 8 Estimat Glomerular Filtration Rate 70 Triglycerides Level 135 Cholesterol Level 111 LDL Cholesterol 43 HDL Cholesterol 41.4 Cholesterol/HDL Ratio 2.68 Date/Time Source Procedure Growth Status 03/30/17 19:05 Blood Peripheral Aerobic Blood Culture - Preliminary NO GROWTH IN 1 DAY Resulted 03/30/17 19:05 Blood Peripheral Anaerobic Blood Culture - Preliminary NO GROWTH IN 1 DAY Resulted 03/30/17 18:00 Urine Catheterized Urine Urine Culture - Preliminary Gram Negative Abhi Resulted Result Diagram: 03/31/17 0522 03/31/1722 Imaging Last Impressions Head Magnetic Resonance Angiography 03/31/17 0000 Signed Impressions: Service Date/Time: March 10:59 - CONCLUSION: Brain MRA within normal limits. Jovanni Sprague MD Chest X-Ray 03/31/17 0000 Signed Impressions: Service Date/Time: March 08:17 - CONCLUSION: No acute cardiopulmonary disease identified. Jovanni Sprague MD Carotid Artery Ultrasound 03/31/17 0000 Signed Impressions: Service Date/Time: March 08:46 - CONCLUSION: No evidence of hemodynamically significant carotid stenosis. Jovanni Sprague MD Brain MRI 03/31/17 0000 Signed Impressions: Service Date/Time: March 10:59 - CONCLUSION: Diffuse atrophy. Ventricles are slightly more prominent than the sulci indicating possible hydrocephalus. No other acute intracranial findings. Jovanni Sprague MD Caprini VTE Risk Assessment Caprini VTE Risk Assessment: Mod/High Risk (score >= 2) Caprini Risk Assessment Model Point Value = 1 Point Value = 2 Point Value = 3 Point Value = 5 Age 41-60 Minor surgery BMI > 25 kg/m2 Swollen legs Varicose veins or History of unexplained or recurrent spontaneous Oral contraceptives or hormone replacement Sepsis (< 1 month) Serious lung disease, including pneumonia (< 1 month) Abnormal pulmonary function Acute myocardial infarction Congestive heart failure (< 1 month) History of inflammatory bowel disease Medical patient at bed rest Age 61-74 Arthroscopic surgery Major open surgery (> 45 min) Laparoscopic surgery (> 45 min) Malignancy Confined to bed (> 72 hours) Immobilizing plaster cast Central venous access Age >= 75 History of VTE Family history of VTE Factor V Leiden Prothrombin [id number] Lupus anticoagulant Anticardiolipin antibodies Elevated serum homocysteine Heparin-induced thrombocytopenia Other congenital or acquired thrombophilia Stroke (< 1 month) Elective arthroplasty Hip, pelvis, or leg fracture Acute spinal cord injury (< 1 month) Prophylaxis Regimen Total Risk Factor Score Risk Level Prophylaxis Regimen 0-1 Low Early ambulation 2 Moderate Order ONE of the following: *Sequential Compression Device (SCD) *Heparin 5000 units SQ BID 3-4 Higher Order ONE of the following medications: *Heparin 5000 units SQ TID *Enoxaparin/Lovenox 40 mg SQ daily (WT < 150 kg, CrCl > 30 mL/min) *Enoxaparin/Lovenox 30 mg SQ daily (WT < 150 kg, CrCl > 10-29 mL/min) *Enoxaparin/Lovenox 30 mg SQ BID (WT < 150 kg, CrCl > 30 mL/min) AND/OR *Sequential Compression Device (SCD) 5 or more Highest Order ONE of the following medications: *Heparin 5000 units SQ TID (Preferred with Epidurals) *Enoxaparin/Lovenox 40 mg SQ daily (WT < 150 kg, CrCl > 30 mL/min) *Enoxaparin/Lovenox 30 mg SQ daily (WT < 150 kg, CrCl > 10-29 mL/min) *Enoxaparin/Lovenox 30 mg SQ BID (WT < 150 kg, CrCl > 30 mL/min) AND *Sequential Compression Device (SCD) Assessment and Plan Assessment and Plan 76-year-old female with Acute encephalopathy 2/2 sepsis due to UTI Expressive ataxia r/o CVA Severe Sepsis ( fever, tachycardia, leukocytosis, encephalopathy on admission) Stroke alert was called. CT head reviewed and negative. Seen by Dr Gilliam neurology . Recommends full work Up . Had MRI/MRA/carotid US reviewed. MRI with atrophy of the brain and enlarged ventricles, otherwise normal imaging, discussed with patient and family. Stroke protocol. ST/OT/PT On tele Neurochecks IVF Started vanco and zosyn. CXR reviewed and normal Patient with UTI - GNR, DC vanco and continue zosyn. Monitor ucx. Blood cultures obtained in the ED and NTD Back pain with radiculopathy will do MRI Spine Diarrhea Check fpr Cc diff start probiotic Chronic medical problems appears at baseline: continue DVT oox scd.margot/lovenox Code Status full code Discussed Condition With patient. nurse, family (daughter at bedside and her son by phone), ED physician Physician Certification 2 Midnight Certification Type: Admission for Inpatient Services Order for Inpatient Services The services are ordered in accordance with Medicare regulations or non- Medicare payer requirements, as applicable. In the case of services not specified as inpatient-only, they are appropriately provided as inpatient services in accordance with the 2-midnight benchmark. Estimated LOS (days): 3 days is the estimated time the patient will need to remain in the hospital, assuming treatment plan goals are met and no additional complications. Post-Hospital Plan: Home Ya Aguayo MD Mar 31, 2017 14:48
[2017-03-31] MEDS: ENOXAPARIN SODIUM 40 MG/0.4 ML SYRINGE SQ SCH (17:15)
[2017-03-31] MEDS ORDERED: VANCOMYCIN INJ 1,400 MG in SODIUM CHLORID 0.9% 500 ML INJ 500 ML IV SCH (21:00)
[2017-03-31] MEDS: LACTOBACILLUS ACIDOPHILUS TAB PO SCH (21:30)
[2017-03-31] MEDS: ATORVASTATIN 20 MG TAB PO SCH (21:30)
[2017-04-01] VITALS (7 sets, daily range): BP systolic 109–146; BP diastolic 61–87; PULSE 61–68; RESP 18–22; TEMP 96.8–98.4; O2SAT 91–95
[2017-04-01] MEDS: PIPERACIL-TAZO 4.5 GM PREMIX 100 ML IV SCH ×2 (01:58→09:11)
[2017-04-01 06:19] LABS: AUTOMATED NEUTROPHIL # 5.2 TH/MM3 (1.8-7.7); BASOPHIL % 0.4 % (0.0-2.0); EOSINOPHIL # 0.2 TH/MM3 (0-0.4); EOSINOPHIL % 2.2 % (0.0-4.0); HEMATOCRIT 35.8 % (35.0-46.0); HEMO FLAGS DIFF FINAL; LYMPHOCYTE # 2.8 TH/MM3 (1.0-4.8); MEAN CELL VOLUME 85.4 FL (80.0-100.0); MONO % 8.5 % (0.0-8.0); NEUT % 57.9 % (16.0-70.0); PLATELET COUNT 241 TH/MM3 (150-450); RED BLOOD COUNT 4.19 MIL/MM3 (4.00-5.30); RED CELL DISTRIBUTION WIDTH 13.3 % (11.6-17.2)
[2017-04-01 06:24] LABS: POTASSIUM 3.5 MEQ/L (3.5-5.1)
[2017-04-01 06:31] LABS: BICARBONATE 28.2 MEQ/L (21.0-32.0); MAGNESIUM 2.4 MG/DL (1.5-2.5)
[2017-04-01] MEDS: INSULIN ASPART SUPPLEMENTAL SCALE SQ SCH ×3 (08:00→17:15)
[2017-04-01] MEDS: DOCUSATE SODIUM 50 MG/SENNA 8.6 MG TAB PO SCH (09:00)
[2017-04-01] MEDS: LACTOBACILLUS ACIDOPHILUS TAB PO SCH (09:07)
[2017-04-01] MEDS: GABAPENTIN 100 MG CAP PO SCH ×3 (09:07→17:16)
[2017-04-01] MEDS: ASPIRIN 81 MG CHEW TAB CHEW SCH (09:07)
[2017-04-01] MEDS: LISINOPRIL 20 MG TAB PO SCH (09:10)
[2017-04-01] MEDS: CARVEDILOL 12.5 MG TAB PO SCH (09:10)
[2017-04-01] MEDS: SODIUM CHLORIDE 0.9% FLUSH 10 ML FLUSH IV FLUSH SCH (09:11)
--- NOTE | 2017-04-01 10:08 | HHI.PR ---
Subjective Remarks In the chair. able to ambulate with PT. Still with pain in her back radiating to the right knee. Patient says she has no diarrhea. No fever or chills. No n/ v. Back at her baseline. Feels comfortable to go home later today. Says she doesn' t have money to do back surgery. Objective Vitals Vital Signs Date Time Temp Pulse Resp B/P (MAP) Pulse Ox O2 Delivery O2 Flow Rate FiO2 04/01/17 08:00 96.9 65 20 146/85 (105) 91 04/01/17 04:00 98.4 65 18 116/72 (87) 95 04/01/17 00:00 98.0 68 20 112/61 (78) 92 03/31/17 21:30 94 21 03/31/17 20:00 97.5 68 20 115/70 (85) 93 03/31/17 20:00 70 03/31/17 15:46 68 03/31/17 12:00 98.6 64 18 107/67 (80) 93 I/O 03/31/17 03/31/17 03/31/17 04/01/17 04/01/17 04/01/17 06:59 14:59 22:59 06:59 14:59 22:59 Intake Total 257.5 ml 892 ml 480 ml 200 ml Output Total 200 ml Balance 57.5 ml 892 ml 480 ml 200 ml Intake Oral 480 ml IV Total 257.5 ml 892 ml 200 ml Output Urine Total 200 ml # Voids 1 2 3 Result Diagram: 04/01/17 0535 04/01/17 0535 Imaging Last Impressions Head Magnetic Resonance Angiography 03/31/17 0000 Signed Impressions: Service Date/Time: March 10:59 - CONCLUSION: Brain MRA within normal limits. Jovanni Sprague MD Chest X-Ray 03/31/17 0000 Signed Impressions: Service Date/Time: March 08:17 - CONCLUSION: No acute cardiopulmonary disease identified. Jovanni Sprague MD Carotid Artery Ultrasound 03/31/17 0000 Signed Impressions: Service Date/Time: March 08:46 - CONCLUSION: No evidence of hemodynamically significant carotid stenosis. Jovanni Sprague MD Brain MRI 03/31/17 0000 Signed Impressions: Service Date/Time: March 10:59 - CONCLUSION: Diffuse atrophy. Ventricles are slightly more prominent than the sulci indicating possible hydrocephalus. No other acute intracranial findings. Jovanni Sprague MD Head CT 03/30/17 0000 Signed Impressions: Service Date/Time: Thursday, March 30, 2017 17:29 - CONCLUSION: Mild prominence to the ventricles, negative for acute infarct or hemorrhage. Findings were discussed with Dr. Dupont at 17:35 Murtaza Whyte MD FACR Objective Remarks GENERAL: This is a well-nourished, well-developed patient, in no apparent distress. CARDIOVASCULAR: Regular rate and rhythm without murmurs, gallops, or rubs. RESPIRATORY: Clear to auscultation. Breath sounds equal bilaterally. No wheezes , rales, or rhonchi. GASTROINTESTINAL: Abdomen soft, non-tender, nondistended. No hepato-splenomegaly , or palpable masses. No guarding. MUSCULOSKELETAL: Extremities without clubbing, cyanosis, or edema. No joint tenderness, effusion, or edema noted. No calf tenderness. Negative Homans sign bilaterally. NEUROLOGICAL: Awake and alert. Cranial nerves II through XII intact. Motor grossly within normal limits. Has some weakness on the left leg with paresthesias. Normal speech, back at baseline. A/P Assessment and Plan 76-year-old female with Acute encephalopathy 2/2 sepsis due to UTI Expressive ataxia r/o CVA Severe Sepsis ( fever, tachycardia, leukocytosis, encephalopathy on admission) Stroke alert was called. CT head reviewed and negative. Seen by Dr Gilliam neurology . Recommends full work Up . Had MRI/MRA/carotid US reviewed. MRI with atrophy of the brain and enlarged ventricles, otherwise normal imaging, results discussed with patient and family. Stroke protocol. ST/OT/PT Monitor on telemetry Neurochecks IVF Received vanco and zosyn in the ER. CXR reviewed and normal. Patient with UTI - E coli pansensitive, DC vanco and zosyn. Start ciprofloxacin PO. Blood cultures obtained in the ED and NTD Back pain with radiculopathy. MRI Spine reviewed and findings discussed with the patient. Anterolisthesis L5 on S1 4 mm with large central left sided disc herniation with disc fragment. Lumbar spinal stenosis. Consult neurosurgery for evaluation. Discussed with Dr Deshpande neurosurgery, OK to DC patient home with pain meds, and to follow up as OP with Dr Moody. Patient to continue PT. Diarrhea: Check for C. diff, however resolved. start probiotic Hypokalemia: resolved. Received KCl, monitor and replace as need. Now eating better. Chronic medical problems appears at baseline: continue home meds as indicated DVT ppx scd/teds/lovenox Code Status full code Discussed Condition With patient, nurse, case management Discharge Planning Improved significantly. Discharge home in stable condition. To follow up as OP with PCP and consultants. Diet healthy heart Activity ad torito as tolerated Meds per med reconciliation Ya Aguayo MD Apr 01, 2017 10:08
--- NOTE | 2017-04-01 10:47 | RADRPT ---
EXAM DATE/TIME: 04/01/2017 09:57 [facility] COMPARISON: No previous studies available for comparison. INDICATIONS : Pain. MEDICAL HISTORY : Hypertension. SURGICAL HISTORY : Tonsillectomy. Right arm/ Lt knee surgery ENCOUNTER: Initial ACUITY: 2 day PAIN SCORE: 5/10 LOCATION: back TECHNIQUE: Multiplanar multisequence MRI of the lumbar spine was performed without contrast. FINDINGS: The most caudal appearing lumbar vertebra is numbered as L5. VERTEBRAE: There are extensive degenerative changes in the lumbar spine discogenic changes at T11-T12 and T12-L1 . Large anterior osteophytes are evident. CONUS: The conus is at L1 unremarkable. T12-L1: Mild interspace ridging is present causing some flattening of the anterior thecal space. Neural fora lili adequate. L1-2: Mild bulging is present without significant spinal stenosis. Neural foramina adequate. L2-3: Mild disc bulging is seen at L2-3 causing some flattening of the anterior thecal space. Neural prashant geoff adequate. L3-4: Generalized disc bulging is present at L3-4, flattening of the anterior thecal space causing a modera te degree of spinal stenosis. This is associated with degenerative changes in the facets and ligamen tous hypertrophy. L4-L5: Mild bulging is present at L4-5. Neural foramina adequate. Mild facet changes evident. L5-S1: There is a large extruded disc fragment central to left-sided with disc in the neural foramen and lat eral recess. This is associated with minimal anterolisthesis of L5 on S1. There is a significant ne ural foraminal encroachment on the left. There is mild neural foraminal encroachment on the right. Moderate degenerative changes are present in the facets. SI joints are normal. CONCLUSION: Anterolisthesis L5 on S1 by approximately 4 mm with associated large central to left-sided disc herni ation with disc fragment evident. Moderate degenerative changes in the remainder of the lumbar spine with lumbar spinal stenosis radiog raphically significant at L3-4. Murtaza Whyte MD FACR on April 01, 2017 at 10:29 Board Certified Radiologist. This report was verified electronically.
[2017-04-01] MEDS ORDERED: ACETAMINOPHEN/HYDROcodone 325 MG/5 MG TAB PO PRN (12:45)
[2017-04-01] MEDS ORDERED: LACTCHW3 CHEW (13:56)
[2017-04-01] MEDS ORDERED: CIPR-9 PO (13:56)
--- NOTE | 2017-04-01 13:57 | HHI.DCPOC ---
Discharge Care Plan Goals to Promote Your Health * To prevent worsening of your condition and complications * To maintain your health at the optimal level Directions to Meet Your Goals Take your medications as prescribed Follow your dietary instruction Follow activity as directed Keep your appointments as scheduled Take your immunizations and boosters as scheduled If your symptoms worsen call your PCP, if no PCP go to Urgent Care Center or Emergency Room Smoking is Dangerous to Your Health. Avoid second hand smoke Call the 24-hour hour crisis hotline for domestic abuse at Ya Aguayo MD Apr 01, 2017 13:57
[2017-04-01] MEDS ORDERED: NORC5TAB PO (13:58)
[2017-04-01] MEDS: ENOXAPARIN SODIUM 40 MG/0.4 ML SYRINGE SQ SCH (17:16)
[2017-04-01] MEDS ORDERED: CIPROFLOXACIN 500 MG TAB PO SCH (21:00)
[2017-04-02] MEDS ORDERED: PHARMACY ORDERED LAB ONE (20:45)
== END 2017-04-01 18:13 | disposition home or self-care (01) | DRG 871 ==
LOC: PHED 17:19 → PHEDA 18:33 → PHEDH 22:33 → PH3B 03-31 00:31
PROVIDERS: ADMIT Hospitalist; ATTEND Hospitalist
DX: A41.9 Sepsis, unspecified organism (principal); G93.40 Encephalopathy, unspecified; N39.0 Urinary tract infection, site not specified; R65.20 Severe sepsis without septic shock; M54.9 Dorsalgia, unspecified; R19.7 Diarrhea, unspecified; E66.9 Obesity, unspecified; Z68.32 Body mass index [BMI] 32.0-32.9, adult; M43.16 Spondylolisthesis, lumbar region; M51.17 Intervertebral disc disorders with radiculopathy, lumbosacral region; M48.06 Spinal stenosis, lumbar region; E87.6 Hypokalemia; I10 Essential (primary) hypertension; Z79.82 Long term (current) use of aspirin; Z86.73 Personal history of transient ischemic attack (TIA), and cerebral infarction without residual deficits; I25.10 Atherosclerotic heart disease of native coronary artery without angina pectoris; Z95.5 Presence of coronary angioplasty implant and graft
CPT/HCPCS: 70450; 70544; 70551; 71010; 72148; 80048; 80061; 80307; 81001; 82550; 82948; 83036; 83605; 83735; 84484; 84702; 85025; 85384; 85610; 85730; 86850; 86900; 86901; 87040; 87077; 87086; 87186; 93005; 93880; 99291; J1650; J2543; J3370; J7030; J7040; J7050

== ENCOUNTER 2018-02-06 00:45 | Observation (INO) ==
--- NOTE | 2018-02-06 01:29 | XR ---
EXAM DATE: 02/06/2018 1:27 AM EDT AGE/SEX: 77 years / Female INDICATIONS: Chest pain. CLINICAL DATA: This is the patient's initial encounter. Patient reports that signs and symptoms have been present for 1 day and indicates a pain score of Nonresponsive. MEDICAL/SURGICAL HISTORY: Asthma. Hypertension. . Cardiac catheterization. COMPARISON: [facility], CHEST SINGLE AP, 03/31/2017. . FINDINGS: A single AP view of the chest demonstrates the lungs to be symmetrically aerated without evidence of mass, infiltrate or effusion. The cardiomediastinal contours are unremarkable. Osseous structures a re intact. CONCLUSION: Negative examination. Electronically signed by: Shilo Marroquin MD 02/06/2018 1:28 AM EDT
[2018-02-06 01:55] LABS: Baso # (Auto) 0.1 th/mm3 (0.0-0.2); Baso % (Auto) 1.5 % (0.0-2.0); Eos # (Auto) 0.1 th/mm3 (0.0-0.4); Eos % (Auto) 0.9 % (0.0-4.0); Hematocrit 41.3 % (35.0-46.0); Hemoglobin 13.6 gm/dL (11.6-15.3); Lymph # (Auto) 3.2 th/mm3 (1.0-4.8); Lymph % (Auto) 34.6 % (9.0-44.0); Mean Corpuscular HGB Conc 32.8 % (32.0-36.0); Mean Corpuscular Hemoglobin 28.8 pg (27.0-34.0); Mean Corpuscular Volume 87.6 fL (80.0-100.0); Mean Platelet Volume 8.2 fL (7.0-11.0); Mono # (Auto) 0.7 th/mm3 (0.0-0.9); Mono % (Auto) 7.6 % (0.0-8.0); Neut # (Auto) 5.1 th/mm3 (1.8-7.7); Neut % (Auto) 55.4 % (16.0-70.0); Platelet Count 251 th/mm3 (150-450); Red Blood Count 4.71 mil/mm3 (4.00-5.30); Red Cell Distribution Width 13.2 % (11.6-17.2); White Blood Count 9.2 th/mm3 (4.0-11.0)
[2018-02-06 02:03] LABS: Chloride 107 meq/L (98-107); Potassium 4.1 meq/L (3.5-5.1); Sodium 140 meq/L (136-145)
[2018-02-06 02:05] LABS: Calcium 8.5 mg/dL (8.5-10.1)
[2018-02-06 02:06] LABS: Anion Gap 6 meq/L (5-15); Blood Urea Nitrogen 30 mg/dL (7-18); Carbon Dioxide 27.3 meq/L (21.0-32.0); Glucose,Random 112 mg/dL (74-106)
[2018-02-06 02:07] LABS: Activated Partial Thrombo Time 24.8 sec (24.3-30.1); Prothrombin Time 10.2 sec (9.8-11.6)
[2018-02-06 02:09] LABS: Glomerular Filtration Rate 48 mL/min (>89)
--- NOTE | 2018-02-06 03:31 | ED ---
HPI General Chief Complaint: Chest Pain Stated Complaint: chest pain Time Seen by Provider: 02/06/18 03:17 Source: patient and family Mode of arrival: ambulatory Limitations: no limitations History of Present Illness HPI narrative: 77-year-old female complains of chest pain. Patient states that chest pain started a week ago and has been persistent since then. Patient states the pain aching pain pressure pain localized left chest. Patient denies any pain radiation. Patient denies palpitation nausea diaphoresis. Patient denies any fever chills coughing congestion. Patient has history of CAD status post stent placement in the past. Patient has been taking nitroglycerin sublingual with no relief of the pain. Patient has history hypertension, hyperlipidemia. Patient is a non-smoker. MD complaint: chest pain Complete Quality Measures for STEMI Alert Patients STEMI Alert: No Onset (ago): day(s) Duration: constant Onset: during rest Pain location: left chest Severity: moderate Severity scale (1-10): 5 Quality: aching Pain radiation: none Relieving factors: nothing Exacerbating factors: nothing Treatments prior to arrival chest pain: nitroglycerin Related Data Home Medications Medication Instructions Recorded Confirmed aspirin [Aspirin Low Dose] 324 mg PO DAILY 02/06/18 02/06/18 atorvastatin 20 mg PO DAILY 02/06/18 02/06/18 carvedilol 12.5 mg PO BID 02/06/18 02/06/18 furosemide 20 mg PO DAILY 02/06/18 02/06/18 isosorbide mononitrate 30 mg PO BID 02/06/18 02/06/18 lisinopril 20 mg PO BID 02/06/18 02/06/18 nitroglycerin 0.4 mg SUBLINGUAL Q5-15M PRN 02/06/18 02/06/18 potassium chloride 10 meq PO DAILY 02/06/18 02/06/18 Allergies Allergy/AdvReac Type Severity Reaction Status Date / Time No Known Allergies Allergy Verified 02/06/18 01:06 Review of Systems Except as stated in HPI: all other systems reviewed are negative [facility] Medical History Medical History CAD (coronary artery disease) (Acute) GERD (gastroesophageal reflux disease) (Acute) HTN (hypertension) (Acute) Hyperlipidemia (Acute) Sepsis (Acute) TIA (transient ischemic attack) (Acute) Surgical History Surgical History Stented coronary artery (Acute) Social History Social History Substance History: No History of Abuse Second Hand Smoke Exposure: No Smoking Status: Never smoker How Often Do You Have a Drink Containing Alcohol: Never Recent Travel in [facility] within the Last 8 Weeks: No Immunization History Tetanus Immunization: Unsure Exam Narrative Exam Narrative: GENERAL: Well-nourished, well-developed patient. SKIN: Focused skin assessment warm/dry. HEAD: Normocephalic. EYES: No scleral icterus. No injection or drainage. NECK: Supple, trachea midline. No JVD or lymphadenopathy. CARDIOVASCULAR: Regular rate and rhythm without murmurs, gallops, or rubs. RESPIRATORY: Breath sounds equal bilaterally. No accessory muscle use. GASTROINTESTINAL: Abdomen soft, non-tender, nondistended. MUSCULOSKELETAL: No cyanosis, or edema. BACK: Nontender without obvious deformity. No CVA tenderness. Neurologic exam normal. Course Initial Documented Vital Signs Temperature 98.4 F 02/06/18 00:55 Pulse Rate 66 02/06/18 00:55 Respiratory Rate 20 02/06/18 00:55 Blood Pressure 142/80 H 02/06/18 00:55 Pulse Oximetry 94 L 02/06/18 00:55 Last Documented Vital Signs Temperature 98.4 F 02/06/18 00:55 Pulse Rate 66 02/06/18 00:55 Respiratory Rate 18 02/06/18 00:55 Blood Pressure 142/80 H 02/06/18 00:55 Pulse Oximetry 94 L 02/06/18 00:55 Medical Decision Making MDM Narrative Medical decision making narrative: 77-year-old female with persistent left- sided chest pain. History of CAD status post stent placement in the past. Differential Diagnosis Differential Diagnosis: Differential diagnosis including musculoskeletal, angina , CO, PE, pneumothorax. Lab Data Lab results reviewed: Yes I reviewed the patient's lab results. Result diagrams: 02/06/18 01:35 02/06/18 01:35 Lab Results 02/06/18 02/06/18 02/06/18 Range/Units 01:35 01:35 01:35 CBC w Diff Auto diff final WBC 9.2 (4.0-11.0) th/mm3 RBC 4.71 (4.00-5.30) mil/mm3 Hgb 13.6 (11.6-15.3) gm/dL Hct 41.3 (35.0-46.0) % MCV 87.6 (80.0-100.0) fL MCH 28.8 (27.0-34.0) pg MCHC 32.8 (32.0-36.0) % RDW 13.2 (11.6-17.2) % Plt Count 251 (150-450) th/mm3 MPV 8.2 (7.0-11.0) fL Neut % (Auto) 55.4 (16.0-70.0) % Lymph % (Auto) 34.6 (9.0-44.0) % [place] % (Auto) 7.6 (0.0-8.0) % Eos % (Auto) 0.9 (0.0-4.0) % Baso % (Auto) 1.5 (0.0-2.0) % Neut # (Auto) 5.1 (1.8-7.7) th/mm3 Lymph # (Auto) 3.2 (1.0-4.8) th/mm3 [place] # (Auto) 0.7 (0.0-0.9) th/mm3 Eos # (Auto) 0.1 (0.0-0.4) th/mm3 Baso # (Auto) 0.1 (0.0-0.2) th/mm3 WBC Differential . Differential Comment . PT 10.2 (9.8-11.6) sec INR 1.0 Ratio APTT 24.8 (24.3-30.1) sec Sodium 140 (136-145) meq/L Potassium 4.1 (3.5-5.1) meq/L Chloride 107 (98-107) meq/L Carbon Dioxide 27.3 (21.0-32.0) meq/L Anion Gap 6 (5-15) meq/L BUN 30 H (7-18) mg/dL Creatinine 1.10 H (0.50-1.00) mg/dL Estimated GFR 48 L (>89) mL/min Random Glucose 112 H (74-106) mg/dL Calcium 8.5 (8.5-10.1) mg/dL Troponin I Less than 0.02 L (0.02-0.05) ng/mL Imaging Data Attestation: I personally reviewed and interpreted this imaging study as follows : Radiologist's impression: Chest X-Ray 02/06/18 01:11 CONCLUSION: Negative examination. ECG Data Interpretation: EKG shows sinus rhythm nonspecific ST-T wave change. Discharge Plan Discharge Disposition Patient Disposition: 30 Still Patient Discharge Details Diagnosis: Chest pain Physicians Team ED Provider: Rajesh Mckeon Primary Care Provider: Magdi Farnsworth Rxs /Orders / Referrals /Forms Prescriptions: No Action potassium chloride 10 mEq Capsule, Extended Release 10 meq PO DAILY RF: 0 atorvastatin 20 mg Tablet 20 mg PO DAILY RF: 0 carvedilol 12.5 mg Tablet 12.5 mg PO BID RF: 0 lisinopril 20 mg Tablet 20 mg PO BID RF: 0 isosorbide mononitrate 30 mg Tablet Extended Release 24 Hr 30 mg PO BID RF: 0 aspirin [Aspirin Low Dose] 81 mg Tablet,Delayed Release (Dr/Ec) 324 mg PO DAILY RF: 0 nitroglycerin 0.4 mg Tablet, Sublingual 0.4 mg SUBLINGUAL Q5-15M PRN (Reason: Chest Pain) RF: 0 furosemide 20 mg Tablet 20 mg PO DAILY RF: 0 Discharge Instructions Patient Printed Instructions: Chest Pain (ED) Status ED Status: With Doctor
[2018-02-06 09:07] LABS: Creatine Kinase 32 U/L (26-192)
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
--- NOTE | 2018-02-06 11:51 | CT ---
EXAM DATE: 02/06/2018 11:34 AM EDT AGE/SEX: 77 years / Female INDICATIONS: Left sided shoulder pain. CLINICAL DATA: This is the patient's initial encounter. Patient reports that signs and symptoms have been present for 2 days and indicates a pain score of 2/10. MEDICAL/SURGICAL HISTORY: Cardiovascular disease. Hypertension. Transient ischemic attack. Append ectomy. section. Coronary artery stent. Elbow surgery. RADIATION DOSE: 24.42 CTDI (mGy) COMPARISON: No prior exams available for comparison. TECHNIQUE: Multiple contiguous axial images were acquired using a multirow detector CT scanner witho ut contrast. Multiplanar reconstruction was performed in the sagittal and coronal planes. Using aut omated exposure control and adjustment of the mA and/or kV according to patient size, radiation dose was kept as low as reasonably achievable to obtain optimal diagnostic quality images. DICOM format i mage data is available electronically for review and comparison. FINDINGS: There is moderate osteoarthritis at the shoulder joint and AC joint with osteophyte formation and mary nt space narrowing. No acute bony abnormality is identified. CONCLUSION: 1. No acute bony abnormality. 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 Coronary a rtery stent present. Electronically signed by: Blanco Villa MD 02/06/2018 11:50 AM EDT
[2018-02-06] MEDS ORDERED: Furosemide 20 MG Tablet PO SCH (12:00)
[2018-02-06] MEDS ORDERED: Budesonide-Formoterol 160/4.5 MCG 6 GM Inhaler INH PRN (12:00)
[2018-02-06] MEDS ORDERED: Carvedilol 12.5 MG Tablet PO SCH (12:00)
[2018-02-06] MEDS ORDERED: Lisinopril 20 MG Tablet PO SCH (12:00)
[2018-02-06] MEDS ORDERED: Regadenoson Inj 0.4 MG/5 ML Syringe IV.PUSH ONE (13:08)
--- NOTE | 2018-02-06 14:16 | NM ---
EXAM DATE: 02/06/2018 2:02 PM EDT AGE/SEX: 77 years / Female INDICATIONS:Angina. Coronary artery disease Left sided chest pain radiating to left shoulder. CLINICAL DATA: This is the patient's initial encounter. Patient reports that signs and symptoms have been present for 1 day and indicates a pain score of 6/10. MEDICAL/SURGICAL HISTORY: Gastroesophageal reflux disease. Hypertension. Appendectomy. Tonsil lectomy. Coronary artery stent. COMPARISON: No prior exams available for comparison. DOSE: 8.5 mCi Tc 99m Myoview at rest 25.4 mCi [id number] at stress 0.4 mg Lexiscan STRESS SYMPTOMS: Dyspnea. EJECTION FRACTION: 68 % TECHNIQUE: The patient underwent pharmacologic stress with infusion of prescribed dose. Continuous ECG tracing was monitored during stress. Gated SPECT imaging was performed after stress and conventi onal SPECT imaging was performed at rest. The examination was performed on a SPECT/CT scanner, both attenuation and non-corrected datasets were reviewed. FINDINGS: Distribution: The maximum perfused segment at stress is in the anterior wall. Perfusion Study: The pattern of perfusion at stress is within normal limits. Gated Study: There are intact wall motion and wall thickening without hypokinetic or dyskinetic segm ents. The ejection fraction is calculated at 68%. RISK CATEGORY: Low (<1% Annual Motality Rate) CONCLUSION: 1. Negative examination. Electronically signed by: Blanco Villa MD 02/06/2018 2:15 PM EDT
[2018-02-06] MEDS ORDERED: Isosorbide Mononitrate 20 MG Tablet PO SCH (15:00)
--- NOTE | 2018-02-07 07:34 | ECG ---
Date Performed: 02/06/2018 Time Performed: 08:24:07 PTAGE: 77 years EKG: SINUS BRADYCARDIA MINIMAL VOLTAGE CRITERIA FOR LVH, CONSIDER NORMAL VARIANT BORDERLINE ECG PREVIOUS TRACING : 02/06/2018 06.20 DOCTOR: Rian Jung Interpretating Date/Time 02/07/2018 07:31:50
--- NOTE | 2018-02-07 07:38 | ECG ---
Date Performed: 02/06/2018 Time Performed: 06:20:08 PTAGE: 77 years EKG: Sinus rhythm NORMAL ECG PREVIOUS TRACING : 02/06/2018 00.51 DOCTOR: Rian Jung Interpretating Date/Time 02/07/2018 07:33:25
--- NOTE | 2018-02-07 07:40 | ECG ---
Date Performed: 02/06/2018 Time Performed: 00:51:49 PTAGE: 77 years EKG: Sinus rhythm MINIMAL VOLTAGE CRITERIA FOR LVH, CONSIDER NORMAL VARIANT BORDERLINE ECG INTERPRETATION BASED ON A D EFAULT AGE OF 40 YEARS PREVIOUS TRACING : 03/30/2017 17.40 DOCTOR: Rian Jung Interpretating Date/Time 02/07/2018 07:35:29
[2018-02-07 21:42] VITALS: BP 105/55; PULSE 76; RESP 20; TEMP 97.4; O2SAT 92
--- NOTE | 2018-02-08 09:09 | TR ---
Date Performed: 02/06/2018 Time Performed: 13:20:01 DOCTOR: Christiano Tejeda DRUG LIST: CLINICAL HISTORY: CHEST PAIN REASON FOR TEST: Chest pain REASON FOR ENDING: OBSERVATION: CONCLUSION: COMMENTS: Lexiscan stress test was performed under standard four minute protocol. Radionuclide was injected one minute prior to ending the test. No electrocardiographic abormalities were present t o suggest ischemia. Nuclear imaging and interpretation are pending.
== END 2018-02-06 18:20 | disposition home or self-care (01) ==
LOC: PH3 00:45 → PHED 00:45 → PHEDA 00:45 → PH3 04:37
PROVIDERS: ADMIT Family Medicine; ATTEND Family Medicine
DX: R07.9 Chest pain, unspecified; Z86.73 Personal history of transient ischemic attack (TIA), and cerebral infarction without residual deficits; K21.9 Gastro-esophageal reflux disease without esophagitis; I10 Essential (primary) hypertension; Z95.5 Presence of coronary angioplasty implant and graft; M19.012 Primary osteoarthritis, left shoulder; E78.5 Hyperlipidemia, unspecified; Z79.82 Long term (current) use of aspirin; I25.10 Atherosclerotic heart disease of native coronary artery without angina pectoris; M25.512 Pain in left shoulder